=== PATIENT | male | born 1975 | race Caucasian/White ===

== ENCOUNTER 2021-11-23 05:52 | Emergency (ER) | payer SELFPAY ==
[2021-11-23 06:58] LABS: HEMOGLOBIN 14.3 gm/dl (14.0-17.5); RED BLOOD COUNT 4.5 M/UL (4.20-5.50)
[2021-11-23 07:19] LABS: BUN/CREATININE RATIO 22 (0-10)
[2021-11-23] MEDS ORDERED: HYDROCODON-ACE1 EAC4 PO (08:38)
[2021-11-23] MEDS ORDERED: ZOFRAN ODT 4 MG4 MG SL (08:53)
[2021-11-23] MEDS ORDERED: IBU800 MG PO (08:53)
== END 2021-11-23 09:15 | disposition home or self-care (01) ==
LOC: ER1 05:52
PROVIDERS: Physician Assistant
DX: N13.2 Hydronephrosis with renal and ureteral calculous obstruction (principal)
CPT/HCPCS: 80053; 81001; 85025; 96361; 96374; 96375; 96376; 99284; J1885; J2405